=== PATIENT | female | born 1935 | race Caucasian/White ===

== ENCOUNTER 2021-08-20 16:10 | Inpatient (IN) ==
[2021-08-20] MEDS ORDERED: ACETAMINOPHEN 325 MG TABLET PO PRN (16:19)
[2021-08-20] MEDS ORDERED: MORPHINE 4 MG/1 ML VIAL IV PRN (16:19)
[2021-08-20] MEDS ORDERED: ONDANSETRON 4 MG/2 ML VIAL IV PRN (16:19)
[2021-08-20] MEDS: SODIUM CHLORIDE 0.45% 1,000 ML IV SCH (17:26)
[2021-08-20] MEDS ORDERED: amLODIPine 5 MG TABLET PO ONE (17:30)
[2021-08-20 17:37] VITALS: BP 165/82
[2021-08-20 17:44] LABS: Basophils % 0.8 % (0.0-0.8); Eosinophils % 0.5 % (0.00-10.9); Hematocrit 37.9 VOL% (35.7-47.0); Hemoglobin 12.4 GM/DL (12.0-16.0); Immature Granulocytes % 0.5 %; Immature Granulocytes Absolute 0.02 #; Lymphocytes # 1.4 10*3/uL (1.4-4.0); Lymphocytes % 36.5 % (21.3-54.2); Mean Corpuscular HGB Conc 32.7 GM/DL (32-36); Mean Corpuscular Volume 109.5 FL (87-102); Mean Platelet Volume 11.4 FL (9.6-12.0); Monocytes % 12.6 % (1.7-12.7); Neutrophils % 49.1 % (38.7-73.9); Platelet Count 176 T/CUMM (130-400); Red Blood Count 3.46 MC/CUMM (3.8-5.5); Red Cell Distribution Width 14.3 % (9.3-17.3); White Blood Count 3.7 T/CUMM (4-12)
[2021-08-20] MEDS: ENOXAPARIN 60 MG/0.6 ML SYRINGE SUBCUT SCH (17:45)
[2021-08-20 17:50] LABS: Bilirubin,Urine Negative (Negative); Blood, Urine Negative (Negative); Glucose,Urine (UA) Negative (Negative); Ketones,Urine Negative (Negative); Mucus,Urine Occasional /LPF (Occasional); Nitrite,Urine Negative (Negative); Protein,Urine 30 MG/DL; RBC,Urine <1 /HPF (0-4); Squamous Epithelial Cell,Urine Occasional /HPF (0-10); Urine Appearance CLEAR (Clear); Urine Color Straw (Yellow); Urine Urobilinogen < 2.0 EU/DL (<2.0)
[2021-08-20 18:04] LABS: Albumin 3.2 G/DL (3.4-5.0); Bilirubin,Total 0.5 MG/DL (0.20-1.00); Calcium 9.3 MG/DL (8.5-10.1); Osmolality,Calculated 293.8 MOS/KG (273-304); Potassium 4.3 MMOL/L (3.5-5.1); Total Protein 7.1 G/DL (6.4-8.2)
[2021-08-20] MEDS: carvediloL 12.5 MG TABLET PO SCH (23:16)
[2021-08-20] MEDS: DOCUSATE SODIUM 100 MG CAPSULE PO SCH (23:28)
[2021-08-21 07:52] LABS: INR 1.1; PT Patient Result 12.6 SECS (10.5-12.0)
[2021-08-21] MEDS: carvediloL 12.5 MG TABLET PO SCH ×2 (08:22→20:31)
[2021-08-21] MEDS: allopurinoL 100 MG TABLET PO SCH (08:22)
[2021-08-21] MEDS: PANTOPRAZOLE 40 MG TABLET PO SCH (08:22)
[2021-08-21] MEDS: DOCUSATE SODIUM 100 MG CAPSULE PO SCH ×2 (08:22→20:31)
[2021-08-21] MEDS: FUROSEMIDE 40 MG TABLET PO SCH (08:22)
[2021-08-21] MEDS: ASPIRIN EC 81 MG TABLET PO SCH (12:07)
[2021-08-21] MEDS: SODIUM CHLORIDE 0.45% 1,000 ML IV SCH (12:08)
[2021-08-21] MEDS: ROSUVASTATIN 20 MG TABLET PO SCH (12:08)
[2021-08-21] MEDS: ENOXAPARIN 60 MG/0.6 ML SYRINGE SUBCUT SCH (17:22)
[2021-08-21] MEDS ORDERED: WARFARIN 5 MG TABLET PO SCH (18:00)
[2021-08-22 03:47] LABS: Basophils % 0.7 % (0.0-0.8); Eosinophils % 0.7 % (0.00-10.9); Hematocrit 38.7 VOL% (35.7-47.0); Hemoglobin 12.8 GM/DL (12.0-16.0); Immature Granulocytes % 0.5 %; Immature Granulocytes Absolute 0.02 #; Lymphocytes # 1.4 10*3/uL (1.4-4.0); Lymphocytes % 32.6 % (21.3-54.2); Mean Corpuscular HGB Conc 33.1 GM/DL (32-36); Mean Corpuscular Volume 108.1 FL (87-102); Mean Platelet Volume 11.6 FL (9.6-12.0); Monocytes % 13.9 % (1.7-12.7); Neutrophils % 51.6 % (38.7-73.9); Platelet Count 172 T/CUMM (130-400); Red Blood Count 3.58 MC/CUMM (3.8-5.5); Red Cell Distribution Width 14.3 % (9.3-17.3); White Blood Count 4.4 T/CUMM (4-12)
[2021-08-22 04:12] LABS: Calcium 8.9 MG/DL (8.5-10.1); Osmolality,Calculated 291.5 MOS/KG (273-304); Potassium 4.1 MMOL/L (3.5-5.1)
[2021-08-22 04:45] LABS: INR 1.1; PT Patient Result 12.2 SECS (10.5-12.0)
[2021-08-22] MEDS: PANTOPRAZOLE 40 MG TABLET PO SCH (09:00)
[2021-08-22] MEDS: DOCUSATE SODIUM 100 MG CAPSULE PO SCH ×2 (09:00→22:30)
[2021-08-22] MEDS: amLODIPine 2.5 MG TABLET PO SCH (09:00)
[2021-08-22] MEDS: ROSUVASTATIN 20 MG TABLET PO SCH (09:00)
[2021-08-22] MEDS: allopurinoL 100 MG TABLET PO SCH (09:01)
[2021-08-22] MEDS: carvediloL 12.5 MG TABLET PO SCH ×2 (09:01→22:30)
[2021-08-22] MEDS: FUROSEMIDE 40 MG TABLET PO SCH (09:01)
[2021-08-22] MEDS: ASPIRIN EC 81 MG TABLET PO SCH (09:01)
[2021-08-22] MEDS: SODIUM CHLORIDE 0.45% 1,000 ML IV SCH (09:26)
[2021-08-22 14:17] LABS: Risk Ratio 2.87
[2021-08-22] MEDS ORDERED: WARFARIN 7.5 MG TABLET PO SCH (18:00)
[2021-08-22] MEDS: ENOXAPARIN 60 MG/0.6 ML SYRINGE SUBCUT SCH (18:21)
[2021-08-23] MEDS: SODIUM CHLORIDE 0.45% 1,000 ML IV SCH ×2 (00:45→10:06)
[2021-08-23 03:39] LABS: Basophils % 0.2 % (0.0-0.8); Eosinophils % 0.8 % (0.00-10.9); Hematocrit 41.1 VOL% (35.7-47.0); Hemoglobin 13.6 GM/DL (12.0-16.0); Immature Granulocytes % 0.6 %; Immature Granulocytes Absolute 0.03 #; Lymphocytes # 1.3 10*3/uL (1.4-4.0); Lymphocytes % 24.1 % (21.3-54.2); Mean Corpuscular HGB Conc 33.1 GM/DL (32-36); Mean Corpuscular Volume 108.2 FL (87-102); Mean Platelet Volume 11.7 FL (9.6-12.0); Monocytes % 10.7 % (1.7-12.7); Neutrophils % 63.6 % (38.7-73.9); Platelet Count 172 T/CUMM (130-400); Red Cell Distribution Width 14.3 % (9.3-17.3); White Blood Count 5.2 T/CUMM (4-12)
[2021-08-23 03:57] LABS: INR 1.5
[2021-08-23 04:02] LABS: Calcium 9.5 MG/DL (8.5-10.1); Osmolality,Calculated 281.2 MOS/KG (273-304)
[2021-08-23] MEDS: DOCUSATE SODIUM 100 MG CAPSULE PO SCH (09:21)
[2021-08-23] MEDS: ASPIRIN EC 81 MG TABLET PO SCH (09:21)
[2021-08-23] MEDS: carvediloL 12.5 MG TABLET PO SCH (09:21)
[2021-08-23] MEDS: allopurinoL 100 MG TABLET PO SCH (09:21)
[2021-08-23] MEDS: ROSUVASTATIN 20 MG TABLET PO SCH (09:21)
[2021-08-23] MEDS: PANTOPRAZOLE 40 MG TABLET PO SCH (09:21)
[2021-08-23] MEDS: amLODIPine 2.5 MG TABLET PO SCH (09:21)
[2021-08-23] MEDS: FUROSEMIDE 40 MG TABLET PO SCH (09:21)
== END 2021-08-23 16:02 | DRG 65 ==
LOC: N.ICU 16:51
PROVIDERS: ADMIT Family Medicine; ATTEND Family Medicine

== ENCOUNTER 2022-03-18 14:05 | Inpatient (IN) ==
[2022-03-18 15:18] LABS: PT Patient Result 165.1 SECS (10.1-12.1); Partial Thromboplastin Time 90.8 SECS (23.7-32.9)
[2022-03-18 15:25] LABS: INR 18.5
[2022-03-18] MEDS ORDERED: SODIUM CHLORIDE 0.9% 1,000 ML IV PRN (15:53)
[2022-03-18] MEDS ORDERED: PHYTONADIONE 10 MG/1 ML AMP SUBCUT STA (15:54)
[2022-03-18 15:57] LABS: Basophils % 0.1 % (0.0-0.8); Hematocrit 25.7 VOL% (35.7-47.0); Hemoglobin 7.9 GM/DL (12.0-16.0); Immature Granulocytes % 0.3 %; Immature Granulocytes Absolute 0.02 #; Lymphocytes # 0.5 10*3/uL (1.4-4.0); Lymphocytes % 6.6 % (21.3-54.2); Mean Corpuscular HGB Conc 30.7 GM/DL (32-36); Mean Corpuscular Volume 113.7 FL (87-102); Mean Platelet Volume 10.8 FL (9.6-12.0); Monocytes # 0.5 10*3/uL (0.11-0.8); Monocytes % 7.6 % (1.7-12.7); Neutrophils % 85.4 % (38.7-73.9); Platelet Count 143 T/CUMM (130-400); Red Blood Count 2.26 MC/CUMM (3.8-5.5); Red Cell Distribution Width 16.1 % (9.3-17.3); White Blood Count 7.1 T/CUMM (4-12)
[2022-03-18] MEDS ORDERED: ACETAMINOPHEN 325 MG TABLET PO PRN (15:59)
[2022-03-18] MEDS ORDERED: ONDANSETRON 4 MG/2 ML VIAL IV PRN (15:59)
[2022-03-18] MEDS ORDERED: FUROSEMIDE 40 MG/4 ML VIAL IV STA (16:37)
[2022-03-18 18:54] LABS: Hemoglobin 7.7 GM/DL (12.0-16.0)
[2022-03-18 19:24] LABS: Calcium 9.5 MG/DL (8.5-10.1); Osmolality,Calculated 304.5 MOS/KG (273-304); Potassium 3.8 MMOL/L (3.5-5.1)
[2022-03-18] MEDS: MEMANTINE 10 MG TABLET PO SCH (20:14)
[2022-03-18] MEDS: PANTOPRAZOLE 40 MG VIAL IV SCH (20:14)
[2022-03-19] MEDS ORDERED: FUROSEMIDE 40 MG/4 ML VIAL IV PRN ×2 (02:07)
[2022-03-19] MEDS: FUROSEMIDE 40 MG/4 ML VIAL IV SCH ×2 (08:18→17:17)
[2022-03-19] MEDS: carvediloL 12.5 MG TABLET PO SCH ×2 (08:19→17:17)
[2022-03-19] MEDS: ASPIRIN EC 81 MG TABLET PO SCH (08:19)
[2022-03-19] MEDS: ROSUVASTATIN 20 MG TABLET PO SCH (08:19)
[2022-03-19] MEDS: amLODIPine 2.5 MG TABLET PO SCH (08:20)
[2022-03-19] MEDS: MEMANTINE 10 MG TABLET PO SCH ×2 (08:20→21:19)
[2022-03-19] MEDS: allopurinoL 100 MG TABLET PO SCH (08:21)
[2022-03-19] MEDS: PANTOPRAZOLE 40 MG VIAL IV SCH ×2 (08:24→21:19)
[2022-03-19] MEDS ORDERED: PANTOPRAZOLE 40 MG TABLET PO SCH (09:00)
[2022-03-19 10:52] LABS: Basophils % 0.2 % (0.0-0.8); Eosinophils % 0.2 % (0.00-10.9); Immature Granulocytes % 0.3 %; Immature Granulocytes Absolute 0.02 #; Lymphocytes # 0.5 10*3/uL (1.4-4.0); Lymphocytes % 7.5 % (21.3-54.2); Mean Corpuscular HGB Conc 32.1 GM/DL (32-36); Mean Corpuscular Volume 101.5 FL (87-102); Mean Platelet Volume 11.2 FL (9.6-12.0); Monocytes # 0.6 10*3/uL (0.11-0.8); Monocytes % 10.2 % (1.7-12.7); Neutrophils % 81.6 % (38.7-73.9); Platelet Count 130 T/CUMM (130-400); Red Cell Distribution Width 18.2 % (9.3-17.3); White Blood Count 6.1 T/CUMM (4-12)
[2022-03-19 10:53] LABS: Hemoglobin 10.6 GM/DL (12.0-16.0); Red Blood Count 3.25 MC/CUMM (3.8-5.5)
[2022-03-19 10:56] LABS: INR 3.6; PT Patient Result 36.6 SECS (10.1-12.1)
[2022-03-20 04:15] LABS: Basophils % 0.2 % (0.0-0.8); Eosinophils % 0.2 % (0.00-10.9); Hematocrit 31.4 VOL% (35.7-47.0); Hemoglobin 9.9 GM/DL (12.0-16.0); Immature Granulocytes % 0.2 %; Immature Granulocytes Absolute 0.01 #; Lymphocytes # 0.6 10*3/uL (1.4-4.0); Lymphocytes % 12.3 % (21.3-54.2); Mean Corpuscular HGB Conc 31.5 GM/DL (32-36); Mean Corpuscular Volume 103.3 FL (87-102); Mean Platelet Volume 11.1 FL (9.6-12.0); Monocytes # 0.6 10*3/uL (0.11-0.8); Monocytes % 12.5 % (1.7-12.7); Neutrophils % 74.6 % (38.7-73.9); Platelet Count 132 T/CUMM (130-400); Red Blood Count 3.04 MC/CUMM (3.8-5.5); Red Cell Distribution Width 18.2 % (9.3-17.3); White Blood Count 4.9 T/CUMM (4-12)
[2022-03-20 04:30] LABS: INR 2.2; PT Patient Result 23.4 SECS (10.1-12.1)
[2022-03-20 08:02] LABS: Bacteria,Urine Many /HPF (Few); RBC,Urine 29 /HPF (0-4); Squamous Epithelial Cell,Urine Occasional /HPF (0-10)
[2022-03-20 08:03] LABS: Bilirubin,Urine Negative (Negative); Blood, Urine Large mg/dL (Negative); Glucose,Urine (UA) Negative (Negative); Ketones,Urine Negative (Negative); Nitrite,Urine Positive (Negative); Protein,Urine 100 mg/dL (Negative); Urine Appearance Cloudy (Clear); Urine Color Yellow (Yellow); Urine Specific Gravity 1.015 (1.001-1.035); Urine Urobilinogen 0.2 eU/dL (<2.0); Urine pH 5.5 (4.5-8.0)
[2022-03-20] MEDS: carvediloL 12.5 MG TABLET PO SCH ×2 (08:27→16:53)
[2022-03-20] MEDS: MEMANTINE 10 MG TABLET PO SCH ×2 (08:27→21:26)
[2022-03-20] MEDS: amLODIPine 2.5 MG TABLET PO SCH (08:27)
[2022-03-20] MEDS: ROSUVASTATIN 20 MG TABLET PO SCH (08:27)
[2022-03-20] MEDS: allopurinoL 100 MG TABLET PO SCH (08:27)
[2022-03-20] MEDS: ASPIRIN EC 81 MG TABLET PO SCH (08:28)
[2022-03-20] MEDS: FUROSEMIDE 40 MG/4 ML VIAL IV SCH ×2 (08:28→16:53)
[2022-03-20] MEDS: PANTOPRAZOLE 40 MG VIAL IV SCH ×2 (08:28→21:26)
[2022-03-20] MEDS ORDERED: cefTRIAXone 1,000 MG in SODIUM CHLORIDE 0.9% 100 ML IV STA (13:08)
[2022-03-21 07:04] LABS: Basophils % 0.2 % (0.0-0.8); Eosinophils # 0.1 10*3/uL (0.0-0.87); Hematocrit 31.3 VOL% (35.7-47.0); Hemoglobin 9.9 GM/DL (12.0-16.0); Immature Granulocytes % 0.2 %; Immature Granulocytes Absolute 0.01 #; Lymphocytes # 0.7 10*3/uL (1.4-4.0); Lymphocytes % 14.1 % (21.3-54.2); Mean Corpuscular HGB Conc 31.6 GM/DL (32-36); Mean Corpuscular Volume 102.6 FL (87-102); Mean Platelet Volume 11.3 FL (9.6-12.0); Monocytes # 0.7 10*3/uL (0.11-0.8); Monocytes % 13.3 % (1.7-12.7); Neutrophils % 71.2 % (38.7-73.9); Platelet Count 169 T/CUMM (130-400); Red Blood Count 3.05 MC/CUMM (3.8-5.5); Red Cell Distribution Width 17.7 % (9.3-17.3)
[2022-03-21 07:06] LABS: INR 1.9; PT Patient Result 19.9 SECS (10.1-12.1)
[2022-03-21 07:18] LABS: Calcium 9.3 MG/DL (8.5-10.1); Osmolality,Calculated 303.3 MOS/KG (273-304)
[2022-03-21] MEDS ORDERED: LACTATED RINGERS 1,000 ML IV SCH (08:00)
[2022-03-21] MEDS ORDERED: POTASSIUM CHLORIDE 20 MEQ TABLET PO STA (08:53)
[2022-03-21] MEDS: FUROSEMIDE 40 MG/4 ML VIAL IV SCH ×2 (09:10→17:21)
[2022-03-21] MEDS: ASPIRIN EC 81 MG TABLET PO SCH (09:17)
[2022-03-21] MEDS: amLODIPine 2.5 MG TABLET PO SCH (09:17)
[2022-03-21] MEDS: ROSUVASTATIN 20 MG TABLET PO SCH (09:17)
[2022-03-21] MEDS: MEMANTINE 10 MG TABLET PO SCH ×2 (09:18→21:19)
[2022-03-21] MEDS: allopurinoL 100 MG TABLET PO SCH (09:18)
[2022-03-21] MEDS: carvediloL 12.5 MG TABLET PO SCH ×2 (09:18→17:20)
[2022-03-21] MEDS: PANTOPRAZOLE 40 MG VIAL IV SCH ×2 (09:19→21:18)
[2022-03-21] MEDS ORDERED: ETOMIDATE 20 MG/10 ML VIAL IV ONE (11:59)
[2022-03-21] MEDS ORDERED: LIDOCAINE 2% 5 ML VIAL ONE (11:59)
[2022-03-21] MEDS ORDERED: propofoL 200 MG/20 ML VIAL IV ONE (11:59)
[2022-03-21] MEDS ORDERED: cefTRIAXone 1,000 MG in SODIUM CHLORIDE 0.9% 100 ML IV SCH (17:00)
[2022-03-22 03:47] LABS: Basophils % 0.2 % (0.0-0.8); Eosinophils # 0.1 10*3/uL (0.0-0.87); Eosinophils % 1.7 % (0.00-10.9); Hematocrit 33.1 VOL% (35.7-47.0); Hemoglobin 10.2 GM/DL (12.0-16.0); Immature Granulocytes % 0.4 %; Immature Granulocytes Absolute 0.02 #; Lymphocytes # 0.8 10*3/uL (1.4-4.0); Lymphocytes % 15.4 % (21.3-54.2); Mean Corpuscular HGB Conc 30.8 GM/DL (32-36); Mean Corpuscular Volume 103.1 FL (87-102); Mean Platelet Volume 11.1 FL (9.6-12.0); Monocytes # 0.7 10*3/uL (0.11-0.8); Neutrophils % 69.3 % (38.7-73.9); Platelet Count 191 T/CUMM (130-400); Red Blood Count 3.21 MC/CUMM (3.8-5.5); Red Cell Distribution Width 17.4 % (9.3-17.3); White Blood Count 5.3 T/CUMM (4-12)
[2022-03-22 04:27] LABS: PT Patient Result 20.7 SECS (10.1-12.1)
[2022-03-22] MEDS: ASPIRIN EC 81 MG TABLET PO SCH (08:45)
[2022-03-22] MEDS: FUROSEMIDE 40 MG/4 ML VIAL IV SCH (08:45)
[2022-03-22] MEDS: carvediloL 12.5 MG TABLET PO SCH (08:45)
[2022-03-22] MEDS: PANTOPRAZOLE 40 MG VIAL IV SCH (08:45)
[2022-03-22] MEDS: MEMANTINE 10 MG TABLET PO SCH (08:45)
[2022-03-22] MEDS: allopurinoL 100 MG TABLET PO SCH (08:45)
[2022-03-22] MEDS: amLODIPine 2.5 MG TABLET PO SCH (08:45)
[2022-03-22] MEDS: ROSUVASTATIN 20 MG TABLET PO SCH (08:46)
[2022-03-22 12:33] VITALS: BP 132/78
== END 2022-03-22 13:20 | disposition home or self-care (01) | DRG 813 ==
LOC: N.ED 14:05 → N.EDINP 17:21 → N.TELES 17:27
PROVIDERS: ADMIT Family Medicine; ATTEND Family Medicine